=== PATIENT | female | born 1990 ===

== ENCOUNTER 2019-05-14 13:21 | Emergency (ER) | payer OTHER ==
[~2019-05-14] VITALS: Ht 170.2 cm; Wt 108.9 kg
== END 2019-05-14 20:12 | disposition home or self-care (01) ==
LOC: ER 13:21
DX: J45.998 Other asthma (principal); B34.9 Viral infection, unspecified

== ENCOUNTER 2019-07-27 10:24 | Emergency (ER) | payer OTHER ==
[~2019-07-27] VITALS: Ht 170.2 cm; Wt 104.3 kg
== END 2019-07-27 11:49 | disposition home or self-care (01) ==
LOC: ER 10:24
DX: R21 Rash and other nonspecific skin eruption (principal); R05 Cough; T78.49XA Other allergy, initial encounter; X58.XXXA Exposure to other specified factors, initial encounter

== ENCOUNTER 2019-12-28 13:59 | Emergency (ER) | payer BC ==
[~2019-12-28] VITALS: Ht 170.2 cm; Wt 101.2 kg
== END 2019-12-28 19:43 | disposition home or self-care (01) ==
LOC: ER 13:59
DX: B34.9 Viral infection, unspecified (principal); Z03.818 Encounter for observation for suspected exposure to other biological agents ruled out; R53.81 Other malaise

== ENCOUNTER 2020-01-03 19:17 | Emergency (ER) | payer BC ==
[~2020-01-03] VITALS: Ht 167.6 cm; Wt 95.3 kg
== END 2020-01-03 23:41 | disposition home or self-care (01) ==
LOC: ER 19:17
DX: U07.1 COVID-19 (principal); R05 Cough; R06.02 Shortness of breath; R50.9 Fever, unspecified